=== PATIENT | female | born 1955 | race Two or more races ===

== ENCOUNTER 2021-06-28 15:33 | Emergency (ER) | payer OTHER ==
[~2021-06-28] VITALS: Ht 162.6 cm; Wt 85.3 kg
[2021-06-28] MEDS ORDERED: BACTRIM DS TAB1 EACH PO (21:53)
== END 2021-06-28 22:07 | disposition home or self-care (01) ==
LOC: ER 15:33
DX: N30.01 Acute cystitis with hematuria (principal); R10.31 Right lower quadrant pain

== ENCOUNTER 2022-03-25 09:44 | Inpatient (IN) | payer OTHER ==
[~2022-03-25] VITALS: Ht 167.6 cm; Wt 113.4 kg
[~2022-03-25 09:44] MED LIST: BACTRIM DS TAB1 EACH PO
[2022-03-25] MEDS ORDERED: OMEPRAZOLE20 MG PO (09:57)
== END 2022-03-29 14:44 | disposition home or self-care (01) | DRG 392 ==
LOC: ER 09:44 → MEDI 19:57
PROVIDERS: ADMIT Internal Medicine; ATTEND Internal Medicine
PROC: BW21ZZZ Computerized Tomography (CT Scan) of Abdomen and Pelvis (ICD-10-PCS; principal; 2022-03-25)
DX: K57.12 Diverticulitis of small intestine without perforation or abscess without bleeding (principal); Z68.41 Body mass index [BMI] 40.0-44.9, adult; K52.1 Toxic gastroenteritis and colitis; T61.91XA Toxic effect of unspecified seafood, accidental (unintentional), initial encounter; R10.31 Right lower quadrant pain; E66.8 Other obesity; Y92.9 Unspecified place or not applicable; Z20.822 Contact with and (suspected) exposure to COVID-19